=== PATIENT | female | born 1990 | race Asian ===

== ENCOUNTER 2017-06-08 19:40 | Outpatient (CLI) | END 2017-06-08 22:22 | disposition home or self-care (01) ==

== ENCOUNTER 2017-08-14 15:55 | Outpatient (CLI) | END 2017-08-14 17:45 | disposition home or self-care (01) ==

== ENCOUNTER 2017-08-26 15:05 | Outpatient (CLI) | END 2017-08-26 21:27 | disposition home or self-care (01) ==

== ENCOUNTER 2017-09-15 09:20 | Inpatient (IN) | END 2017-09-17 15:45 | disposition home or self-care (01) | DRG 775 ==